=== PATIENT | female | born 1935 | race Caucasian/White ===

== ENCOUNTER 2016-09-23 19:00 | Emergency (ER) | payer MEDICARE ==
[~2016-09-23] VITALS: Ht 157.5 cm; Wt 49.0 kg
[2016-09-23 19:02] VITALS: BP 174/74; PULSE 83; RESP 18; TEMP 97.6; O2SAT 98
[2016-09-23] MEDS ORDERED: PANT20 PO (19:50)
[2016-09-23] MEDS ORDERED: ESTR0.5T PO (19:50)
[2016-09-23] MEDS ORDERED: LIDOCAINE 1%/EPINEPHrine 1:100,000 SOLN 20 ML VIAL INFIL ONE (20:00)
--- NOTE | 2016-09-23 20:02 | PD ---
HPI Chief Complaint: Fall Time Seen by Provider: 19:36 Travel History International Travel<30 days: No Contact w/Intl Traveler<30days: No Traveled to known affect area: No History of Present Illness HPI Pleasant 80-year-old female here with complaint after a fall. Patient tripped over luggage falling and hitting her right elbow, head. No LOC. Patient notes laceration and bleeding from the right scalp. She is not anticoagulated and does not have any headache, nausea or vomiting. Patient notes she also hit her right elbow and hand when she landed. She recently had surgery on the right elbow after fracture. She notes bleeding from the incision site. Also notes bruising to the hand as she fell really with little pain she is able to digital product specialist well. 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) Past Surgical History Endocrine Surgery: Yes (nodule removed from thyroid ) Eye Surgery: Yes (partial cornea transplant) Hysterectomy: Yes Social History Alcohol Use: Yes (occ) Tobacco Use: No Substance Use: No Allergies-Medications (Allergen,Severity, Reaction): Coded Allergies: No Known Allergies (Unverified , 09/23/16) Reported Meds & Prescriptions Reported Meds & Active Scripts Active Reported Protonix (Pantoprazole Sodium) 20 Mg Tab 20 Mg PO DAILY Estradiol 0.5 Mg Tab 0.5 Mg PO DAILY Review of Systems Except as stated in HPI: all other systems reviewed are Neg Physical Exam Narrative GENERAL: Elderly female in no acute distress SKIN: Warm and dry. HEAD: Right parietal scalp with approximately 3.5 cm laceration with no active bleeding. This does go deep to skull. Normocephalic. EYES: Pupils equal and round. No scleral icterus. No injection or drainage. ENT: No nasal bleeding or discharge. Mucous membranes pink and moist. TMs clear bilaterally. NECK: Supple without midline tenderness to palpation CARDIOVASCULAR: Regular rate and rhythm. RESPIRATORY: No accessory muscle use. MUSCULOSKELETAL: Right upper extremity with elbow flexed at 90. Postoperative incision line bleeding slightly but intact without dehiscence. Patient has swelling and ecchymosis which is old per patient. She has limited range of motion, states that this has been since her recent operation and is not any worse than normal. She has minimal tenderness to palpation. On the right hand patient has a slight amount of bruising on the index and middle finger but is able to range fully without any decreased strength. NEUROLOGICAL: Awake and alert. Motor grossly within normal limits. Normal speech. PSYCHIATRIC: Appropriate mood and affect; insight and judgment normal. Data Data Last Documented VS Vital Signs Date Time Temp Pulse Resp B/P Pulse Ox O2 Delivery O2 Flow Rate FiO2 09/23/16 19:35 18 09/23/16 19:02 97.6 83 174/74 98 Room Air Orders Lidocai-Epi 1%-1:100,000 Inj (Xylocaine- (09/23/16 20:00) Ct Brain W/O Iv Contrast(Rout) (09/23/16 ) Elbow, Limited (Ap&Lat) (09/23/16 ) Forearm (2vws) (09/23/16 ) Hand, Limited (2vws) (09/23/16 ) Support Splint (09/23/16 20:43) MDM Medical Decision Making Medical Screen Exam Complete: Yes Emergency Medical Condition: Yes Medical Record Reviewed: Yes Differential Diagnosis 80-year-old female here with complaints after fall. Differential includes scalp laceration, closed head injury, skull fracture, ICH, postoperative bleeding, right elbow or forearm fracture, right hand ecchymosis, right hand fracture. Narrative Course Laceration repaired by nurse practitioner, please see procedure note. CT of the brain and x-rays of the right elbow, forearm, hand notable for hardware failure with acute fracture in the right elbow. Patient had her initial surgery performed at [facility] in [facility] by Dr. David Triplett initially, her second surgery was performed by Dr. Hemant Jones III. Records from these operative visits were requested. Patient was placed in long arm posterior slab splint and sling. I spoke with my on-call orthopedic surgeon, Dr. Tran, who recommends patient will likely need complete elbow replacement. Unfortunately none of our orthopedic surgeons perform this procedure and she will be referred back to her surgeons in [facility]. Patient discharged home with analgesics. Diagnosis Primary Impression: Elbow fracture, right Qualified Code: S42.401A - Elbow fracture, right, closed, initial encounter Additional Impressions: Scalp laceration Qualified Code: S01.01XA - Scalp laceration, initial encounter Fall Qualified Code: W19.XXXA - Fall, initial encounter Traumatic ecchymosis of right hand Qualified Code: S60.221A - Traumatic ecchymosis of right hand, initial encounter Referrals: Orthopedist call for appointment Primary Care Physician 1 week staple removal Additional Instructions: Staple removal from scalp laceration in 7-10 days. Med/Other Pt SpecificInfo: Prescription(s) given Scripts Hydrocodone-Acetaminophen ([place])5-325 mg Tab1 Tab PO Q4H PRN (PAIN) #20 TAB Ref 0 Prov:Brandi Montenegro MD 09/23/16 Disposition: 01 DISCHARGE HOME Condition: Stable Brandi Montenegro MD Sep 23, 2016 20:02
--- NOTE | 2016-09-23 20:29 | RADRPT ---
EXAM DATE/TIME: 09/23/2016 20:06 [facility] COMPARISON: No previous studies available for comparison. INDICATIONS : Right hand pain. Patient fell onto right arm today. MEDICAL HISTORY : None. SURGICAL HISTORY : None. ENCOUNTER: Initial ACUITY: 1 day PAIN SCORE: 5/10 LOCATION: Right entire hand FINDINGS: There is significant osteopenia without fracture. Significant osteopenia makes detection of subtle n ondisplaced fractures very difficult. CONCLUSION: Osteopenia, negative for displaced fracture. Followup may be of benefit patient vicki ins symptomatic. Vinny Fried MD FACR on September 23, 2016 at 20:27 Board Certified Radiologist. This report was verified electronically.
--- NOTE | 2016-09-23 20:30 | RADRPT ---
EXAM DATE/TIME: 09/23/2016 20:12 [facility] COMPARISON: No previous studies available for comparison. INDICATIONS : Trauma; fall. Laceration behind right ear. RADIATION DOSE: 30.22 CTDIvol (mGy) MEDICAL HISTORY : Gastroesophageal reflux disease. SURGICAL HISTORY : thyroid nodule, corneal transplant ENCOUNTER: Initial ACUITY: 1 day PAIN SCALE: 7/10 LOCATION: cranial TECHNIQUE: Multiple contiguous axial images were obtained of the head. Using automated exposure control and adjustment of the mA and/or kV according to patient size, radiation dose was kept as low as reasonably achievable to obtain optimal diagnostic quality images. FINDINGS: CEREBRUM: The ventricles are normal for age. No evidence of midline shift, mass lesion, hemorrha ge or acute infarction. No extra-axial fluid collections are seen. POSTERIOR FOSSA: The cerebellum and brainstem are intact. The 4th ventricle is midline. The cer ebellopontine angle is unremarkable. EXTRACRANIAL: The visualized portion of the orbits is intact. SKULL: The calvaria is intact. No evidence of skull fracture. CONCLUSION: Negative for an acute process. Vinny Fried MD FACR on September 23, 2016 at 20:28 Board Certified Radiologist. This report was verified electronically.
--- NOTE | 2016-09-23 20:30 | RADRPT ---
EXAM DATE/TIME: 09/23/2016 19:58 [facility] COMPARISON: No previous studies available for comparison. INDICATIONS : Right elbow pain. Patient fell onto right arm today. MEDICAL HISTORY : Multiple fractures to right distal humerus and proximal radius/ulna SURGICAL HISTORY : ORIF right distal humerus; ORIF right proximal radius/ulna ENCOUNTER: Initial ACUITY: 1 day PAIN SCORE: 10/10 LOCATION: Right entire elbow FINDINGS: There is hardware failure and re-fracture of the olecranon and lateral aspect of the humerus. CONCLUSION: 1. Hardware failure with re-fracture. 2. I don't have any of the immediate preoperative films on this patient. Vinny Fried MD FACR on September 23, 2016 at 20:26 Board Certified Radiologist. This report was verified electronically.
--- NOTE | 2016-09-23 20:39 | RADRPT ---
EXAM DATE/TIME: 09/23/2016 20:04 [facility] COMPARISON: ELBOW RIGHT LIMITED (AP & LAT), September 23, 2016, 19:58. INDICATIONS : Right proximal forearm pain. Patient fell onto right arm today. MEDICAL HISTORY : Multiple fractures to right distal humerus and proximal radius/ulna SURGICAL HISTORY : ORIF right distal humerus; ORIF right proximal radius/ulna ENCOUNTER: Initial ACUITY: 1 day PAIN SCORE: 10/10 LOCATION: Right proximal forearm FINDINGS: Fracture and hardware disruption at the elbow. The remainder of the forearm is intact. Right wrist is intact. CONCLUSION: Elbow fracture. Otherwise negative Thee Andersen MD Board Certified Radiologist. This report was verified electronically.
--- NOTE | 2016-09-23 20:39 | PD ---
Physical Exam Date Seen by Provider: Sep 23, 2016 Time Seen by Provider: 20:38 Narrative I was asked by Dr. Montenegro to repair laceration to the patient's scalp. Please see her documentation for full history and physical. Data Data Last Documented VS Vital Signs Date Time Temp Pulse Resp B/P Pulse Ox O2 Delivery O2 Flow Rate FiO2 09/23/16 19:35 18 09/23/16 19:02 97.6 83 174/74 98 Room Air Orders Lidocai-Epi 1%-1:100,000 Inj (Xylocaine- (09/23/16 20:00) Ct Brain W/O Iv Contrast(Rout) (09/23/16 ) Elbow, Limited (Ap&Lat) (09/23/16 ) Forearm (2vws) (09/23/16 ) Hand, Limited (2vws) (09/23/16 ) MDM Supervised Visit with HENRRY: No Procedures Procedure Narrative LACERATION LOCATION: Scalp LENGTH: 4.5 cm NUMBER OF STITCHES/VONDA: 6 vonda REPAIR: The area of the laceration was prepped with Betadine and sterilely draped. The laceration was infiltrated with 1% lidocaine with epinephrine. The wound was copiously irrigated and explored without evidence of foreign body, tendon injury or neurovascular injury. The wound was closed using vonda. This was a single layer repair. A sterile dressing was applied. The patient was advised to keep the dressing clean and dry. Patient tolerated the procedure well. Agueda Montgomery Sep 23, 2016 20:39
[2016-09-23] MEDS ORDERED: NORC5TAB PO (21:22)
[2016-09-23 21:45] VITALS: BP 162/74; PULSE 89; RESP 18; TEMP 98.4; O2SAT 96
[2016-09-23] MEDS ORDERED: ACETAMINOPHEN/HYDROcodone 325 MG/5 MG TAB PO ONE (21:45)
== END 2016-09-23 22:42 | disposition home or self-care (01) ==
LOC: NEPE 19:00
DX: S01.01XA Laceration without foreign body of scalp, initial encounter (principal); S42.401A Unspecified fracture of lower end of right humerus, initial encounter for closed fracture; S60.221A Contusion of right hand, initial encounter; W01.0XXA Fall on same level from slipping, tripping and stumbling without subsequent striking against object, initial encounter
CPT/HCPCS: 12002; 29105; 70450; 73070; 73090; 73120

== ENCOUNTER 2016-10-02 14:54 | Emergency (ER) | payer MEDICARE ==
[~2016-10-02] VITALS: Ht 157.5 cm; Wt 49.1 kg
[~2016-10-02 14:54] MED LIST: ESTR0.5T PO; NORC5TAB PO; PANT20 PO
[2016-10-02 14:55] VITALS: BP 145/66; PULSE 79; RESP 18; TEMP 97.9; O2SAT 99
--- NOTE | 2016-10-02 15:18 | PD ---
HPI Chief Complaint: Wound/Suture/Staple Re-Check Time Seen by Provider: 15:25 Travel History International Travel<30 days: No Contact w/Intl Traveler<30days: No Traveled to known affect area: No History of Present Illness HPI 80-year-old female presents to emergency department for removal of vonda to her right scalp. They have been there for approximately a week and half. She denies fever, chills, nausea, vomiting. Denies drainage coming from the site. Denies pain. No other modifying factors or associated signs and symptoms. PFSH Past Medical History GERD: Yes Past Surgical History Endocrine Surgery: Yes (nodule removed from thyroid ) Eye Surgery: Yes (partial cornea transplant) Hysterectomy: Yes Social History Alcohol Use: Yes (occ) Tobacco Use: No Substance Use: No Allergies-Medications (Allergen,Severity, Reaction): Coded Allergies: No Known Allergies (Unverified , 10/02/16) Reported Meds & Prescriptions Reported Meds & Active Scripts Active [place] (Hydrocodone-Acetaminophen) 5-325 mg Tab 1 Tab PO Q4H PRN Reported Protonix (Pantoprazole Sodium) 20 Mg Tab 20 Mg PO DAILY Estradiol 0.5 Mg Tab 0.5 Mg PO DAILY Review of Systems Except as stated in HPI: all other systems reviewed are Neg Physical Exam Narrative GENERAL: Well-nourished, well-developed elderly, female patient, in no acute distress; afebrile, nontoxic-appearing SKIN: Warm and dry. Well approximated laceration to the right scalp with vonda intact; without erythema, edema, drainage. No signs of infection. HEAD: Atraumatic. Normocephalic. EYES: Pupils equal and round. No scleral icterus. No injection or drainage. ENT: Mucosa pink and moist. Airway patent. NECK: Trachea midline. CARDIOVASCULAR: Regular rate. RESPIRATORY: No accessory muscle use. GASTROINTESTINAL: Flat. MUSCULOSKELETAL: No obvious deformities. No clubbing. No cyanosis. No edema. NEUROLOGICAL: Awake and alert. Oriented 3. No obvious cranial nerve deficits. Motor grossly within normal limits. Normal speech. PSYCHIATRIC: Appropriate mood and affect; insight and judgment normal. Data Data Last Documented VS Vital Signs Date Time Temp Pulse Resp B/P Pulse Ox O2 Delivery O2 Flow Rate FiO2 10/02/16 14:55 97.9 79 18 145/66 99 Room Air MDM Medical Decision Making Medical Screen Exam Complete: Yes Emergency Medical Condition: Yes Medical Record Reviewed: Yes Differential Diagnosis Staple removal, wound recheck, medical clearance Narrative Course 80-year-old female presents for staple removal for a laceration to her right scalp. The wound is well approximated with vonda intact and no signs of infection. 6 Vonda removed and patient tolerated well. Patient is medically cleared and stable for discharge. Discussed reasons to return to the emergency department. Instructed patient to follow up with primary care provider. Patient agrees with treatment plan. The patients vital signs are stable and the patient is stable for outpatient follow-up and treatment. Patient discharged home, stable and in no acute distress. Diagnosis Primary Impression: Encounter for staple removal Referrals: Primary Care Physician Additional Instructions: Follow-up with primary care provider Return to the emergency department immediately with worsening of symptoms Med/Other Pt SpecificInfo: No Change to Meds, No Meds Exist/No RX given Disposition: 01 DISCHARGE HOME Condition: Stable Edda Lyn Oct 02, 2016 15:18
== END 2016-10-02 15:40 | disposition home or self-care (01) ==
LOC: NEPB 14:54
DX: Z48.02 Encounter for removal of sutures (principal)
CPT/HCPCS: 99281